=== PATIENT | male | born 1955 | race Caucasian/White ===

== ENCOUNTER 2019-05-20 15:10 | Emergency (ER) | payer OTHER, MEDICAID ==
[2019-05-20] MEDS: LEVETIRACETAM 500 MG (PMX) 100 ML IVPB (15:58)
[2019-05-20 16:26] LABS: ADD MAN DIFF? NO
[2019-05-20 16:29] LABS: ABNORMAL IP MESSAGE 1; BASOPHILS % 0.3 % (0.0-2.0); EOSINOPHILS % 0.3 % (0.0-7.0); HEMATOCRIT 31.6 % (42.0-52.0); HEMOGLOBIN 10.8 g/dl (14.0-18.0); LYMPHOCYTES # 0.4 10^3/ul (0.8-2.9); LYMPHOCYTES % 5.9 % (15.0-51.0); MEAN CORPUSCULAR HEMOGLOBIN 32.6 pg (29.0-33.0); MEAN CORPUSCULAR HGB CONC 34.2 g/dl (32.0-37.0); MEAN CORPUSCULAR VOLUME 95.5 fl (82.0-101.0); MEAN PLATELET VOLUME 10.3 fl (7.4-10.4); MONOCYTE # 0.9 10^3/ul (0.3-0.9); MONOCYTES % 12.6 % (0.0-11.0); NEUTROPHILS % 80.4 % (39.0-77.0); PLATELET COUNT 194 10^3/UL (140-415); POSITIVE DIFF @See below; RED BLOOD COUNT 3.31 10^6/ul (4.70-6.10); RED CELL DISTRIBUTION WIDTH 12.5 % (11.5-14.5)
[2019-05-20 16:29] LABS: WHITE BLOOD COUNT 7.5 10^3/ul (4.8-10.8)
[2019-05-20 16:46] LABS: ANION GAP 14 (5-13); BLOOD UREA NITROGEN 52 mg/dl (7-20); CALCIUM 9.6 mg/dl (8.4-10.2); CARBON DIOXIDE 32 mmol/L (21-31); CHLORIDE 93 mmol/L (97-110); CREATININE 5.81 mg/dl (0.61-1.24); Estimated GFR 10 mL/min (>60); GLUCOSE 134 mg/dl (70-220); POTASSIUM 3.4 mmol/L (3.5-5.1); SODIUM 139 mmol/L (135-144)
[2019-05-20 16:48] LABS: INR 0.91; PROTIME 12.4 Sec (11.9-14.9)
[2019-05-20 16:49] LABS: PARTIAL THROMBOPLASTIN TIME 27.9 Sec (23.0-35.0)
[2019-05-20 16:58] LABS: TROPONIN-I 0.036 ng/ml (0.000-0.120)
[2019-05-20 17:17] LABS: PHENYTOIN (DILANTIN) 4.9 ug/ml (10.0-20.0)
[2019-05-20] MEDS: FOSPHENYTOIN IVPB (18:02)
[2019-05-20] MEDS: SOD CHLORIDE 0.9% IVPB (18:02)
== END 2019-05-20 18:54 | disposition home or self-care (01) ==
LOC: E/R 15:10
DX: T82.49XA Other complication of vascular dialysis catheter, initial encounter (principal); G40.909 Epilepsy, unspecified, not intractable, without status epilepticus; D64.9 Anemia, unspecified; E87.6 Hypokalemia; I12.0 Hypertensive chronic kidney disease with stage 5 chronic kidney disease or end stage renal disease; N18.6 End stage renal disease; E11.22 Type 2 diabetes mellitus with diabetic chronic kidney disease; I11.0 Hypertensive heart disease with heart failure; I50.9 Heart failure, unspecified; Y82.9 Unspecified medical devices associated with adverse incidents; Z99.2 Dependence on renal dialysis; Z86.73 Personal history of transient ischemic attack (TIA), and cerebral infarction without residual deficits
CPT/HCPCS: 71045; 80048; 80185; 84484; 85025; 85610; 85730; 86850; 86900; 86901; 93005; 96374; 96375; 99285-25